=== PATIENT | female | born 1950 | race Caucasian/White ===

== ENCOUNTER 2017-07-11 18:10 | Emergency (ER) | payer MEDICARE, OTHER ==
[2017-07-11] MEDS ORDERED: HYDROmorphone 1 MG/ML Syringe IVPUSH ONE (18:34)
[2017-07-11 18:36] VITALS: BP 141/68
[2017-07-11] MEDS ORDERED: Take Home: Acetaminophen/HYDROcodone 325-10 MG, 5 Tab Pack PO ONE (19:34)
[2017-07-11] MEDS ORDERED: Take Home: Cyclobenzaprine 10 MG Tab, 4 Tab Pack PO ONE (19:44)
--- NOTE | 2017-07-11 20:25 | EDM.PDOC ---
ED HPI GENERAL MEDICAL PROBLEM - General Chief Complaint: Back Pain or Injury Time Seen by Provider: 07/11/17 18:10 Source of Information: Reports: Patient History Limitations: Reports: No Limitations - History of Present Illness INITIAL COMMENTS - FREE TEXT/NARRATIVE: Pt. states that she fell on her backside today when she slipped on the ice. She states that she did not strike her head. Denies any paresthesia in her extremities. Pt. complains of pain R lateral to her mid/lower lumbar region. Denies deformity /discomfort on palpation of her thoracic or cervical spine. 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 02/25/17 [ Rx] Gabapentin [Neurontin] 100 mg PO TID 03/13/17 [History] Past Medical History Other HEENT History: bacterial infection OU treated antibiotics Cardiovascular History: Reports: Hypertension, SOB on Exertion Other Respiratory History: hay fever, seasonal, stop bang 09/13 Other Musculoskeletal History: Riget foot and ankle pain. Neurological History: Reports: Neuropathy, Peripheral Psychiatric History: Reports: Depression Endocrine/Metabolic History: Reports: Hyperthyroidism, Obesity/BMI 30+ Hematologic History: Reports: None Immunologic History: Reports: None Oncologic (Cancer) History: Reports: None Other Dermatologic History: dermatitis/vaginal itch. - Infectious Disease History Infectious Disease History: Reports: None - Past Surgical History Musculoskeletal Surgical History: Reports: Knee Replacement Social & Family History - Family History Cardiac: Reports: Aneurysm, [place] Respiratory: Reports: Asthma Neurological: Reports: Dementia, Seizure Oncologic: Reports: Prostate - Tobacco Use Smoking Status *Q: Never Smoker Used Tobacco, but Quit: No Second Hand Smoke Exposure: No - Caffeine Use Caffeine Use: Reports: Coffee - Recreational Drug Use Recreational Drug Use: No Drug Use in Last 12 Months: No - Living Situation & Occupation Living situation: Reports: , with Family (grandson) Occupation: Retired ED ROS GENERAL - Review of Systems Review Of Systems: See Below Constitutional: Reports: No Symptoms HEENT: Reports: No Symptoms Cardiovascular: Reports: No Symptoms Endocrine: Reports: No Symptoms GI/Abdominal: Reports: No Symptoms : Reports: No Symptoms Musculoskeletal: Reports: Back Pain Skin: Reports: No Symptoms Neurological: Reports: No Symptoms Psychiatric: Reports: No Symptoms Hematologic/Lymphatic: Reports: No Symptoms Immunologic: Reports: No Symptoms ED EXAM, GENERAL - Physical Exam Exam: See Below General Appearance: Alert, WD/WN, No Apparent Distress Eye Exam: Bilateral Eye: EOMI, Foreign Body, PERRL Throat/Mouth: Normal Inspection, Normal Lips, Normal Teeth, Normal Gums, Normal Oropharynx, Normal Voice, No Airway Compromise Head: Atraumatic, Normocephalic Neck: Normal Inspection, Supple, Non-Tender, Full Range of Motion Respiratory/Chest: No Respiratory Distress, Lungs Clear, Normal Breath Sounds, No Accessory Muscle Use, Chest Non-Tender Cardiovascular: Normal Peripheral Pulses, Regular Rate, Rhythm, No Edema, No Gallop, No JVD, No Murmur, No Rub Peripheral Pulses: 4+: Radial (L), Radial (R) GI/Abdominal: Normal Bowel Sounds, Soft, Non-Tender, No Organomegaly, No Distention, No Abnormal Bruit, No Mass (Female) Exam: Deferred Rectal (Female) Exam: Deferred Back Exam: Decreased Range of Motion, Other (No vertebral tenderness to cervical , thoracic, or lumbar spine. Does have discomfort on palp.R lateral to the mid lumbar region) Extremities: Normal Inspection, Normal Range of Motion, Non-Tender, Normal Capillary Refill Neurological: Alert, Oriented, CN II-XII Intact, Normal Cognition, Normal Gait, Normal Reflexes, No Motor/Sensory Deficits Psychiatric: Normal Affect, Normal Mood Skin Exam: Warm, Dry, Intact, Normal Color, No Rash Course - Vital Signs Last Recorded V/S: Last Vital Signs Temp 37.0 C 07/11/17 18:10 Pulse 80 07/11/17 18:10 Resp 16 07/11/17 18:10 BP 141/68 H 07/11/17 18:10 Pulse Ox - Orders/Labs/Meds Orders: Active Orders 24 hr Category Date Time Status Lumbar Spine 2 or 3V [CR] Stat Exams 07/11/17 18:35 Taken Meds: Medications Discontinued Medications Generic Name Dose Route Start Last Admin Trade Name Lucy PRN Reason Stop Dose Admin Hydrocodone Bitart/Acetaminophen 1 packet 07/11/17 19:34 07/11/17 19:54 Take Home: Acetaminophen/Hydrocodone 325-10mg PO 07/11/17 19:35 1 packet ONETIME ONE Administration Cyclobenzaprine HCl 1 packet 07/11/17 19:44 07/11/17 19:54 Take Home: Cyclobenzaprine 10 Mg, 4 Tab Pack PO 07/11/17 19:45 1 packet TID ONE Administration Hydromorphone HCl 1 mg 07/11/17 18:34 07/11/17 18:50 Dilaudid IVPUSH 07/11/17 18:35 1 mg ONETIME ONE Administration - Radiology Interpretation Free Text/Narrative:: L spine radiographs reveal no acute pathology. Incidental finding of t12 congenital wedging vs. old compression fx. No acute findings noted. Departure - Departure Time of Disposition: 19:20 Disposition: Home, Self-Care 01 Condition: Good Clinical Impression: Lumbar spine strain - Discharge Information Instructions: Back Pain, Adult, [id number] Referrals: Winsome Catherine ORDER MAKE UP CLERK [Primary Care Provider] - Forms: ED Department Discharge Additional Instructions: [place] 10/325mg 1 tablet every 6 hours as needed for pain cyclobenzaprine 10mg 1 tablet 3 times daily as needed for muscle spasm Ice painful areas for 10-15 min every 1-2 hours Follow-up in clinic in 10-14 days - My Orders Last 24 Hours: My Active Orders 07/11/17 18:35 Lumbar Spine 2 or 3V [CR] Stat - Assessment/Plan Last 24 Hours: My Active Orders 07/11/17 18:35 Lumbar Spine 2 or 3V [CR] Stat
== END 2017-07-11 20:05 | disposition home or self-care (01) ==
LOC: VM.ED 18:10
DX: S39.012A Strain of muscle, fascia and tendon of lower back, initial encounter (principal); Z88.8 Allergy status to other drugs, medicaments and biological substances; Z91.09 Other allergy status, other than to drugs and biological substances; Z79.899 Other long term (current) drug therapy; E66.9 Obesity, unspecified; W00.0XXA Fall on same level due to ice and snow, initial encounter
CPT/HCPCS: 72100; 96374; 99284; A9270; J1170

== ENCOUNTER 2018-06-26 06:37 | Emergency (ER) | payer MEDICARE, OTHER ==
[2018-06-26 06:54] VITALS: BP 174/110
--- NOTE | 2018-06-26 07:28 | EDM.PDOC ---
ED HPI GENERAL MEDICAL PROBLEM - General Chief Complaint: Lower Extremity Injury/Pain Stated Complaint: FELL LAST SATURDAY, HIP AND LEG HAVE PAIN Time Seen by Provider: 06/26/18 06:40 Source of Information: Reports: Patient, RN, RN Notes Reviewed History Limitations: Reports: No Limitations - History of Present Illness Onset Date: 06/20/18 Left Hip Pain Score (Numeric/FACES): 10 - Related Data Allergies Allergy/AdvReac Type Severity Reaction Status Date / Time oxaprozin [From Daypro] Allergy Hives Verified 06/26/18 06:48 diagnostic xray materials Allergy Hives Uncoded 06/26/18 06:48 Home Meds: Home Meds Citalopram Hydrobromide [Celexa] 20 mg PO DAILY 02/25/17 [History] DULoxetine HCl [Duloxetine HCl] 30 mg PO DAILY 15 Days #15 capsule. 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 Neurological History: Reports: Neuropathy, Peripheral Psychiatric History: Reports: Anxiety Endocrine/Metabolic History: Reports: Hyperthyroidism, Obesity/BMI 30+ Hematologic History: Reports: None Immunologic History: Reports: None Oncologic (Cancer) History: Reports: None Other Dermatologic History: dermatitis/vaginal itch. - Infectious Disease History Infectious Disease History: Reports: None - Past Surgical History Neurological Surgical History: Reports: None Musculoskeletal Surgical History: Reports: Knee Replacement Other Musculoskeletal Surgeries/Procedures:: Bilateral knee Social & Family History - Family History Cardiac: Reports: Aneurysm, [place] Respiratory: Reports: Asthma Neurological: Reports: Dementia, Seizure Oncologic: Reports: Prostate - Tobacco Use Smoking Status *Q: Never Smoker - Caffeine Use Caffeine Use: Reports: Coffee - Living Situation & Occupation Living situation: Reports: , with Family (grandson) Occupation: Retired Review of Systems - Review of Systems Review Of Systems: See Below Constitutional: Denies: Chills, Fever Respiratory: Denies: Shortness of Breath, Cough Cardiovascular: Denies: Chest Pain, Palpitations Genitourinary: Denies: Hematuria Musculoskeletal: Reports: Joint Pain, Joint Swelling, Muscle Pain, Muscle Stiffness, Other (Left pelvic pain with radiation down lateral left leg) Skin: Reports: No Symptoms Neurological: Reports: No Symptoms ED EXAM, GENERAL - Physical Exam Exam: See Below Exam Limited By: No Limitations General Appearance: Alert, No Apparent Distress Respiratory/Chest: No Respiratory Distress, Lungs Clear, Normal Breath Sounds Cardiovascular: Normal Peripheral Pulses, Regular Rate, Rhythm Peripheral Pulses: 2+: Radial (L), Radial (R) Back Exam: Normal Inspection Extremities: Normal Inspection, Normal Range of Motion Neurological: Alert, Oriented Skin Exam: Warm, Dry, Intact, Normal Color Course - Vital Signs Last Recorded V/S: Last Vital Signs Temp 35.6 C 06/26/18 06:49 Pulse 78 06/26/18 06:49 Resp 20 06/26/18 06:49 BP 174/110 H 06/26/18 06:49 Pulse Ox 97 06/26/18 06:49 - Radiology Interpretation Free Text/Narrative:: CT Pelvis: No fracture or dislocation; Mild degenerative changes of the hips bilaterally Elbow, Left 3V: Dorsal soft tissue swelling. No fracture See reports in EMR for details CT Results Date: 06/26/18 CT Results Time: 08:35 Departure - Departure Time of Disposition: 08:39 Disposition: Home, Self-Care 01 Condition: Good Clinical Impression: Contusion, hip Qualifiers: Encounter type: initial encounter Laterality: left Qualified Code(s): S70.02XA - Contusion of left hip, initial encounter Elbow injury Qualifiers: Encounter type: initial encounter Laterality: left Qualified Code(s): S59.902A - Unspecified injury of left elbow, initial encounter Fall from slipping on ice Qualifiers: Encounter type: initial encounter Qualified Code(s): W00.9XXA - Unspecified fall due to ice and snow, initial encounter - Discharge Information *PRESCRIPTION DRUG MONITORING PROGRAM REVIEWED*: Not Applicable *COPY OF PRESCRIPTION DRUG MONITORING REPORT IN PATIENT VOLODYMYR: Not Applicable Instructions: Contusion, Hip Pain Forms: ED Department Discharge Additional Instructions: 1. Stay well hydrated and rest 2. Apply heat to painful areas 3. You do not have any fractures or dislocations 4. Use home medications 5. See your Primary as symptoms warrant - Problem List Review Problem List Initiated/Reviewed/Updated: Yes - Assessment/Plan Assessment:: Fall on ice Left hip contusion Left elbow contusion
--- NOTE | 2018-06-26 08:25 | CR ---
[id number] RAD/RAD Elbow Left 3V Min EXAM: LEFT ELBOW 3 VIEWS INDICATION: Fall with left elbow pain and swelling. COMPARISON: None. DISCUSSION: Soft tissue swelling along the dorsal aspect of the elbow. Mild osteoarthritis. No acute fracture, joint effusion, dislocation or other osseous abnormality is identified. IMPRESSION: 1. Dorsal soft tissue swelling. No fracture. Gonzales Law MD 06/26/18 0824 Thank you for allowing us to participate in the care of your patient.
--- NOTE | 2018-06-26 08:35 | CT ---
[id number] CT/CT Pelvis WO IV EXAM: CT OF THE PELVIS WITHOUT CONTRAST. INDICATION: FALL, BILATERAL PELVIS PAIN. COMPARISON: CT abdomen pelvis 02/14/2018. DISCUSSION: The visualized small bowel and colon does not demonstrate evidence of obstruction or inflammation. The urinary bladder and ureters are unremarkable. There are a few calcifications within the uterus suggesting fibroid. Atherosclerotic calcifications of the aorta and its branches. No acute fracture, dislocation or other suspicious osseous abnormality. Mild degenerative changes of the femoral acetabular joint bilaterally Multilevel degenerative changes of the visualized lumbar spine. IMPRESSION: 1. No fracture or dislocation. 2. Mild degenerative changes of the hips bilaterally. Doc Valentine DO 06/26/18 0835 Thank you for allowing us to participate in the care of your patient.
== END 2018-06-26 08:55 | disposition home or self-care (01) ==
LOC: VM.ED 06:37
DX: S70.02XA Contusion of left hip, initial encounter (principal); S59.902A Unspecified injury of left elbow, initial encounter; E05.90 Thyrotoxicosis, unspecified without thyrotoxic crisis or storm; I10 Essential (primary) hypertension; Z79.899 Other long term (current) drug therapy; Z88.8 Allergy status to other drugs, medicaments and biological substances; W00.9XXA Unspecified fall due to ice and snow, initial encounter
CPT/HCPCS: 72192; 73080-LT; 99283-25

== ENCOUNTER 2018-10-29 18:44 | Emergency (ER) | payer MEDICARE, OTHER ==
[2018-10-29 19:20] VITALS: BP 95/48; PULSE 92
[2018-10-29 19:53] LABS: CHLORIDE,CL 104 mmol/L (98-107); SODIUM,NA 142 mmol/L (136-145)
[2018-10-29 19:54] LABS: ANION GAP 15.8 mmol/L (10-20)
--- NOTE | 2018-10-30 06:44 | EDM.PDOC ---
ED HPI GENERAL MEDICAL PROBLEM - General Chief Complaint: Upper Extremity Injury/Pain Time Seen by Provider: 10/29/18 19:10 Source of Information: Reports: Patient History Limitations: Reports: No Limitations - History of Present Illness INITIAL COMMENTS - FREE TEXT/NARRATIVE: Pt. presents to ER with complaints of pain to left upper arm for the past several days. Pt. states that she has been much more active and has been doing a lot of activity over her head. Denies any specific injury to the area. Pt. has a history of arthritis and chronic pain. She is attempting to wean herself off of her [place] and has been taking high doses of ibuprofen for the discomfort. Pt. states that the pain is worse with movement and palpation of the shoulder. She has had pain in the area in the past, but states that it is worse than normal. Denies any numbness/tingling in the extremity. No chest pain. No shortness of breath. Denies any falls or subluxation of the shoulder joint. Onset Date: 10/29/18 Location: Reports: Upper Extremity, Left Severity: Moderate Left Upper Arm Pain Score (Numeric/FACES): 9 - Related Data Allergies Allergy/AdvReac Type Severity Reaction Status Date / Time oxaprozin [From Daypro] Allergy Hives Verified 10/29/18 19:07 diagnostic xray materials Allergy Hives Uncoded 10/29/18 19:07 Home Meds: Home Meds Citalopram Hydrobromide [Celexa] 40 mg PO DAILY 02/25/17 [History] DULoxetine HCl [Duloxetine HCl] 30 mg PO DAILY 15 Days #15 capsule. 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 Neurological History: Reports: Neuropathy, Peripheral Psychiatric History: Reports: Anxiety Endocrine/Metabolic History: Reports: Hyperthyroidism, Obesity/BMI 30+ Hematologic History: Reports: None Immunologic History: Reports: None Oncologic (Cancer) History: Reports: None Other Dermatologic History: dermatitis/vaginal itch. - Infectious Disease History Infectious Disease History: Reports: None - Past Surgical History Neurological Surgical History: Reports: None Musculoskeletal Surgical History: Reports: Knee Replacement Other Musculoskeletal Surgeries/Procedures:: Bilateral knee Social & Family History - Family History Cardiac: Reports: Aneurysm, [place] Respiratory: Reports: Asthma Neurological: Reports: Dementia, Seizure Oncologic: Reports: Prostate - Tobacco Use Smoking Status *Q: Unknown Ever Smoked - Caffeine Use Caffeine Use: Reports: Coffee - Living Situation & Occupation Living situation: Reports: , with Family (grandson) Occupation: Retired Review of Systems - Review of Systems Review Of Systems: See Below Constitutional: Reports: No Symptoms Eyes: Reports: No Symptoms Ears: Reports: No Symptoms Nose: Reports: No Symptoms Mouth/Throat: Reports: No Symptoms Respiratory: Reports: No Symptoms Cardiovascular: Reports: No Symptoms GI/Abdominal: Reports: No Symptoms Genitourinary: Reports: No Symptoms Musculoskeletal: Reports: Shoulder Pain, Arm Pain Skin: Reports: No Symptoms Neurological: Reports: No Symptoms Psychiatric: Reports: No Symptoms ED EXAM, GENERAL - Physical Exam Exam: See Below Exam Limited By: No Limitations General Appearance: Alert, WD/WN, No Apparent Distress Head: Atraumatic, Normocephalic Neck: Normal Inspection, Supple, Non-Tender, Full Range of Motion Respiratory/Chest: No Respiratory Distress, Lungs Clear, Normal Breath Sounds, No Accessory Muscle Use, Chest Non-Tender Cardiovascular: Normal Peripheral Pulses, Regular Rate, Rhythm, No Edema, No Gallop, No JVD, No Murmur, No Rub Back Exam: Normal Inspection, Full Range of Motion Extremities: Normal Inspection, Limited Range of Motion (posteriolateral L shoulder/upper arm pain. + straight arm raise. Empty can test positive.) Neurological: Alert, Oriented, CN II-XII Intact, Normal Cognition, Normal Gait, Normal Reflexes, No Motor/Sensory Deficits Psychiatric: Normal Affect, Normal Mood Skin Exam: Warm, Dry, Intact, Normal Color, No Rash Course - Vital Signs Last Recorded V/S: Last Vital Signs Temp 36.6 C 10/29/18 18:45 Pulse 92 10/29/18 18:45 Resp 18 10/29/18 18:45 BP 95/48 L 10/29/18 18:45 Pulse Ox 91 L 10/29/18 18:45 - Orders/Labs/Meds Orders: Active Orders 24 hr Category Date Time Status EKG Documentation Completion [RC] STAT Care 10/29/18 19:13 Active Labs: Laboratory Tests 10/29/18 10/29/18 Range/Units 19:22 19:22 WBC 7.5 (4.0-10.0) x10^3/uL RBC 4.33 (4.00-5.50) x10^6/uL Hgb 11.7 L (12.0-16.0) g/dL Hct 36.0 (33.0-47.0) % MCV 83.1 (78.0-93.0) fL MCH 27.0 (26.0-32.0) pg MCHC 32.5 (32.0-36.0) g/dL RDW Coeff of Carin 16.7 H (10.0-15.0) % Plt Count 285 (130-400) x10^3/uL Neut % (Auto) 64.2 (50.0-80.0) % Lymph % (Auto) 24.4 L (25.0-50.0) % [place] % (Auto) 7.5 (2.0-11.0) % Eos % (Auto) 3.5 (0.0-4.0) % Baso % (Auto) 0.4 (0.2-1.2) % Sodium 142 (136-145) mmol/L Potassium 4.8 (3.5-5.1) mmol/L Chloride 104 (98-107) mmol/L Carbon Dioxide 27 (21-32) mmol/L Anion Gap 15.8 (10-20) mmol/L BUN 33 H (7-18) mg/dL Creatinine 1.9 H (0.55-1.02) mg/dL Est Cr Clr Drug Dosing 25.79 mL/min Estimated GFR (MDRD) 26 Glucose 114 H (74-106) mg/dL Calcium 9.2 (8.5-10.1) mg/dL Corrected Calcium 9.28 (8.5-10.1) mg/dL Phosphorus 6.2 H (2.6-4.7) mg/dL Magnesium 2.0 (1.8-2.4) mg/dL Total Bilirubin 0.8 (0.2-1.0) mg/dL AST 15 (15-37) U/L ALT 22 (14-59) U/L Alkaline Phosphatase 122 H (46-116) U/L Troponin I < 0.017 (<=0.056) ng/mL Total Protein 7.3 (6.4-8.2) g/dL Albumin 3.9 (3.4-5.0) g/dL Globulin 3.4 Albumin/Globulin Ratio 1.15 Departure - Departure Time of Disposition: 20:28 Disposition: Home, Self-Care 01 Clinical Impression: Rotator cuff arthropathy of left shoulder, Nephropathy due to nonsteroidal anti -inflammatory drug (NSAID) - Discharge Information Instructions: Shoulder Sprain, Chronic Kidney Disease, Adult, [id number] Referrals: Winsome Catherine NP [Primary Care Provider] - Forms: ED Department Discharge Additional Instructions: Your creatinine is quite high. Stop taking any antiinflammatory drugs (ibuprofen , naproxen, etc.) You will need to have your kidney function checked within the next 10 days. Make sure you are getting plenty of water. Dehydration could be contributing to muscle pains and worsening kidney function, but the pain is most likely due to rotator cuff strain from your activity yesterday. - My Orders Last 24 Hours: My Active Orders 10/29/18 19:13 EKG Documentation Completion [RC] STAT - Assessment/Plan Last 24 Hours: My Active Orders 10/29/18 19:13 EKG Documentation Completion [RC] STAT Plan: Discussed exercises to do for shoulder. No overhead activity. Advised to stop all NSAID medications. She has been taking upward of 600mg ibuprofen several times per day because she is trying to wean herself from [place]. Advised taking a half pill of norco every 4-6 hours. Will continue the lisinopril for now. Her creat was in the 1.05 range before she started with high dose NSAIDS. Follow-up in clinic in 7-10 days for repeat labs.
== END 2018-10-29 20:28 | disposition home or self-care (01) ==
LOC: VM.ED 18:44
DX: N14.0 Analgesic nephropathy (principal); M75.102 Unspecified rotator cuff tear or rupture of left shoulder, not specified as traumatic; I10 Essential (primary) hypertension; F41.9 Anxiety disorder, unspecified; E05.90 Thyrotoxicosis, unspecified without thyrotoxic crisis or storm; Z79.1 Long term (current) use of non-steroidal anti-inflammatories (NSAID); Z91.041 Radiographic dye allergy status; Z88.6 Allergy status to analgesic agent; Z79.899 Other long term (current) drug therapy
CPT/HCPCS: 36415; 80053; 83735; 84100; 84484; 85025; 93005; 99283-25; 99284-GF

== ENCOUNTER → 2018-12-03 | Outpatient (CLI) | payer MEDICARE, OTHER | LOC: VM.SLEEP 07:56 | PROVIDERS: ATTEND Nurse Practitioner | DX: G47.33 Obstructive sleep apnea (adult) (pediatric) (principal); E66.9 Obesity, unspecified; Z68.42 Body mass index [BMI] 45.0-49.9, adult | CPT/HCPCS: Q3014 ==

== ENCOUNTER 2019-06-09 11:24 | Observation (INO) | payer MEDICARE, OTHER ==
--- NOTE | 2019-06-09 11:35 | EDM.PDOC ---
ED HPI GENERAL MEDICAL PROBLEM - General Chief Complaint: Syncope Stated Complaint: Syncopal episode Time Seen by Provider: 06/09/19 11:24 Source of Information: Reports: Patient, EMS, EMS Notes Reviewed History Limitations: Reports: No Limitations - History of Present Illness INITIAL COMMENTS - FREE TEXT/NARRATIVE: Patient comes into the emergency department via EMS for complaint of syncopal episode. Patient was at a local [employer] function states that she felt extremely dizzy and hot and ended up passing out in a chair. Friends lowered her to the floor. They state the unresponsive episode lasted approximately 2 minutes when the patient awoke she was still dizzy, pale, and was vomiting. Patient states that she been feeling extremely dizzy the past 2 to 3 weeks especially with moving her head and raising from a laying position. Patient states that she did not eat breakfast this morning and took all of her pills at once with 1 large cup of water. She is also noticed that she does have some mild distention in her abdomen and increased belching. 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 She states that she does not eat large quantities at a time however she did not have her normal intake today. Patient denies any abnormal bowel movements. She also denies any fevers or recent illnesses. Patient did donate blood yesterday and her hemoglobin at that time frame was 12. EMS started an IV and completed a 12-lead prior to patient's arrival. Patient remained in a sinus rhythm. EMS state that the patient was extremely pale upon arrival and was sitting upright vomiting talking to people around her. By the time she presented to the emergency department EMS state that her color was much improved. Patient continues deny any pain or injury and she also denies any dizziness right now. Patient states that she has lost all of her weight and she decided to stop taking all of her medications at once approximately 3 weeks ago. She has noticed last 2 to 3 days that she has been extremely irritable with her grandson who she lives with her. She decided today to restart all of her medications at one time at the increased dosing that she had been on before. She denies consulting with her provider to stop the medications or to restart the medications. Patient also denies eating any breakfast prior to taking the medication. Onset: Sudden Location: Reports: Abdomen, Generalized Severity: Mild Improves with: Reports: None Worsens with: Reports: None Context: Reports: Activity Associated Symptoms: Reports: Nausea/Vomiting - Related Data Allergies Allergy/AdvReac Type Severity Reaction Status Date / Time oxaprozin [From Daypro] Allergy Hives Verified 06/09/19 11:48 diagnostic xray materials Allergy Hives Uncoded 10/29/18 19:07 Home Meds: Home Meds Citalopram Hydrobromide [Celexa] 40 mg PO DAILY 02/25/17 [History] Gabapentin [Neurontin] 300 mg PO TID 03/13/17 [History] Ibuprofen [Advil] 200 mg PO Q6H PRN 08/19/17 [History] Levothyroxine 1 tab PO DAILY 08/19/17 [History] Lisinopril 1 tab PO DAILY 10/29/18 [History] Meclizine [Antivert] 25 mg PO TID PRN 06/09/19 [History] Omeprazole Magnesium [Prilosec Otc] 20 mg PO BID 06/09/19 [History] buPROPion [Wellbutrin] 100 mg PO BID 06/09/19 [History] Past Medical History Other HEENT History: bacterial infection OU treated antibiotics Cardiovascular History: Reports: Hypertension, SOB on Exertion Respiratory History: Reports: SOB Other Respiratory History: hay fever, seasonal [employer] History: Reports: Musculoskeletal History: Reports: Arthritis, Osteoarthritis Other Musculoskeletal History: Right foot and ankle pain. Neurological History: Reports: Neuropathy, Peripheral Psychiatric History: Reports: Anxiety Endocrine/Metabolic History: Reports: Hyperthyroidism, Obesity/BMI 30+ Hematologic History: Reports: None Immunologic History: Reports: None Oncologic (Cancer) History: Reports: None Other Dermatologic History: dermatitis/vaginal itch. - Infectious Disease History Infectious Disease History: Reports: None - Past Surgical History Neurological Surgical History: Reports: None Musculoskeletal Surgical History: Reports: Knee Replacement Other Musculoskeletal Surgeries/Procedures:: Bilateral knee Social & Family History - Family History Cardiac: Reports: Aneurysm, [place] Respiratory: Reports: Asthma Neurological: Reports: Dementia, Seizure Oncologic: Reports: Prostate - Caffeine Use Caffeine Use: Reports: Coffee - Living Situation & Occupation Living situation: Reports: , with Family (grandson) Occupation: Retired ED ROS GENERAL - Review of Systems Review Of Systems: Comprehensive ROS is negative, except as noted in HPI. Constitutional: Reports: No Symptoms HEENT: Reports: No Symptoms Respiratory: Reports: No Symptoms Cardiovascular: Reports: No Symptoms Musculoskeletal: Reports: No Symptoms Skin: Reports: No Symptoms Neurological: Reports: Dizziness (with turning head to the right and raising from the laying position x 2 weeks ) Psychiatric: Reports: No Symptoms Hematologic/Lymphatic: Reports: No Symptoms Immunologic: Reports: No Symptoms ED EXAM, GENERAL - Physical Exam Exam: See Below Exam Limited By: No Limitations General Appearance: Alert, WD/WN, No Apparent Distress Eye Exam: Bilateral Eye: EOMI, PERRL Ears: Normal External Exam, Normal Canal, Hearing Grossly Normal, Normal TMs Head: Atraumatic, Normocephalic Neck: Normal Inspection, Supple, Non-Tender Respiratory/Chest: No Respiratory Distress, Lungs Clear, Normal Breath Sounds, No Accessory Muscle Use, Chest Non-Tender Cardiovascular: Normal Peripheral Pulses, Regular Rate, Rhythm, No Edema GI/Abdominal: Soft, Non-Tender, Other (large amount of belching ). No: Tender Back Exam: Normal Inspection, Full Range of Motion Extremities: Normal Inspection, Normal Range of Motion Neurological: Alert, Oriented Psychiatric: Normal Affect, Normal Mood Skin Exam: Warm, Dry, Intact, Pallor Course - Vital Signs Last Recorded V/S: Last Vital Signs Temp 36.8 C 06/09/19 11:24 Pulse 71 06/09/19 11:24 Resp 18 06/09/19 11:24 BP 91/54 L 06/09/19 12:17 Pulse Ox 98 06/09/19 11:24 - Orders/Labs/Meds Orders: Active Orders 24 hr Category Date Time Status Admission Status [Patient Status] [ADT] Routine ADT 06/09/19 13:06 Ordered Blood Glucose Check, Bedside [RC] ONETIME Care 06/09/19 11:30 Active Labs: Laboratory Tests 06/09/19 06/09/19 06/09/19 Range/Units 11:29 11:43 11:43 WBC 5.1 (4.0-10.0) x10^3/uL RBC 3.85 L (4.00-5.50) x10^6/uL Hgb 11.0 L (12.0-16.0) g/dL Hct 33.2 (33.0-47.0) % MCV 86.2 D (78.0-93.0) fL MCH 28.6 (26.0-32.0) pg MCHC 33.1 (32.0-36.0) g/dL RDW Coeff of Carin 14.6 (10.0-15.0) % Plt Count 198 D (130-400) x10^3/uL Neut % (Auto) 57.6 (50.0-80.0) % Lymph % (Auto) 31.6 (25.0-50.0) % [place] % (Auto) 6.9 (2.0-11.0) % Eos % (Auto) 3.1 (0.0-4.0) % Baso % (Auto) 0.8 (0.2-1.2) % PT 9.9 L (10.0-12.8) SEC INR 0.9 L (2.0-3.5) Sodium (136-145) mmol/L Potassium (3.5-5.1) mmol/L Chloride (98-107) mmol/L Carbon Dioxide (21-32) mmol/L Anion Gap (10-20) mmol/L BUN (7-18) mg/dL Creatinine (0.55-1.02) mg/dL Est Cr Clr Drug Dosing Estimated GFR (MDRD) Glucose (74-106) mg/dL POC Glucose 113 H (74-106) mg/dL Calcium (8.5-10.1) mg/dL Corrected Calcium (8.5-10.1) mg/dL Total Bilirubin (0.2-1.0) mg/dL AST (15-37) U/L ALT (14-59) U/L Alkaline Phosphatase (46-116) U/L Creatine Kinase (26-192) U/L Troponin I (<=0.056) ng/mL C-Reactive Protein (<=0.9) mg/dL Total Protein (6.4-8.2) g/dL Albumin (3.4-5.0) g/dL Globulin Albumin/Globulin Ratio 06/09/19 06/09/19 Range/Units 11:43 11:43 WBC (4.0-10.0) x10^3/uL RBC (4.00-5.50) x10^6/uL Hgb (12.0-16.0) g/dL Hct (33.0-47.0) % MCV (78.0-93.0) fL MCH (26.0-32.0) pg MCHC (32.0-36.0) g/dL RDW Coeff of Carin (10.0-15.0) % Plt Count (130-400) x10^3/uL Neut % (Auto) (50.0-80.0) % Lymph % (Auto) (25.0-50.0) % [place] % (Auto) (2.0-11.0) % Eos % (Auto) (0.0-4.0) % Baso % (Auto) (0.2-1.2) % PT (10.0-12.8) SEC INR (2.0-3.5) Sodium 144 (136-145) mmol/L Potassium 4.1 (3.5-5.1) mmol/L Chloride 108 H (98-107) mmol/L Carbon Dioxide 26 (21-32) mmol/L Anion Gap 14.1 (10-20) mmol/L BUN 15 (7-18) mg/dL Creatinine 1.1 H (0.55-1.02) mg/dL Est Cr Clr Drug Dosing TNP Estimated GFR (MDRD) 49 Glucose 113 H (74-106) mg/dL POC Glucose (74-106) mg/dL Calcium 8.8 (8.5-10.1) mg/dL Corrected Calcium 9.44 (8.5-10.1) mg/dL Total Bilirubin 1.0 (0.2-1.0) mg/dL AST 10 L (15-37) U/L ALT 15 (14-59) U/L Alkaline Phosphatase 78 (46-116) U/L Creatine Kinase 35 (26-192) U/L Troponin I 0.028 (<=0.056) ng/mL C-Reactive Protein < 0.2 (<=0.9) mg/dL Total Protein 5.9 L (6.4-8.2) g/dL Albumin 3.2 L (3.4-5.0) g/dL Globulin 2.7 Albumin/Globulin Ratio 1.19 Meds: Medications Discontinued Medications Generic Name Dose Route Start Last Admin Trade Name Freq PRN Reason Stop Dose Admin Sodium Chloride 500 mls @ 500 mls/hr 06/09/19 11:42 06/09/19 11:49 Normal Saline IV 06/09/19 12:41 500 mls/hr ONETIME ONE Administration Departure - Departure Time of Disposition: 13:10 Disposition: Refer to Observation Condition: Good Clinical Impression: Vertigo Syncope Qualifiers: Syncope type: unspecified Qualified Code(s): R55 - Syncope and collapse - Discharge Information *PRESCRIPTION DRUG MONITORING PROGRAM REVIEWED*: Not Applicable *COPY OF PRESCRIPTION DRUG MONITORING REPORT IN PATIENT VOLODYMYR: Not Applicable Sepsis Event Note - Focused Exam Vital Signs: Vital Signs Temp Pulse Resp BP Pulse Ox 06/09/19 12:17 91/54 L 06/09/19 11:24 36.8 C 71 18 97/53 L 98 Date Exam was Performed: 06/09/19 Time Exam was Performed: 13:07 - Problem List Review Problem List Initiated/Reviewed/Updated: Yes - My Orders Last 24 Hours: My Active Orders 06/09/19 11:30 Blood Glucose Check, Bedside [RC] ONETIME 06/09/19 13:06 Admission Status [Patient Status] [ADT] Routine - Assessment/Plan Admission H&P: Please use this note as an admission H&P Last 24 Hours: My Active Orders 06/09/19 11:30 Blood Glucose Check, Bedside [RC] ONETIME 06/09/19 13:06 Admission Status [Patient Status] [ADT] Routine Assessment:: 1. Syncopal episode 2. Nausea 3. Vertigo 4. increase belching Plan: 1. Labs completed in the ER. Results reviewed with the patient 2. CT completed in ER. Results reviewed with the patient 3. IV fluids provided-500ml Bolus 4. Pain medication given for severe pain and discomfort- 5. Zofran given in the ER to help with nausea- was given via EMS 6. EKG completed via EMS- sinus rhythm 7. Tylenol 650mg tab given for headache 8. Patient will be admitted observation status. Did contact [facility] who is unable to admit. Patient will be admitted under the ER staff for observation Code level 1 for syncopal episode. Activity as tolerated. PT referral and assessment/treatment of vertigo. 9. Patient and nursing staff was updated regarding the plan of care 10. Patient and family are agreeable to the above plan of care 11. All questions and concerns were addressed with the patient and family prior to being admitted. 1. Syncopal episode - Nursing to monitor - vital signs completed routinely - labs ordered in AM - Normal saline 125ml/hr - Encourage patient to eat health appropriate food that is consistent with her food restriction related to gastric bypass - Up with assistance - Physical therapy referral to assess home safety and ambulation - Cardiac monitoring and pulse oximetry - EKG in Am 2. Nausea - Zofran ordered for nausea - Normal saline 125ml/hr 3. Vertigo - Meclizine PRN for dizziness - ambulation and getting up with assistance 4. Accidental medication overdose - Restart at home medications in the am. Wellbutrin will be restarted at 75mg daily, Celexa 40mg daily. - Will hold off on other at home medications for she is unsure if she really needs them since the weight loss. Pt will follow up with PCP within a few days of discharge to discuss.
[2019-06-09] MEDS ORDERED: Sodium Chloride 0.9% 500 ML IV ONE (11:42)
[2019-06-09 12:09] LABS: CHLORIDE,CL 108 mmol/L (98-107); SODIUM,NA 144 mmol/L (136-145)
[2019-06-09 12:10] LABS: ANION GAP 14.1 mmol/L (10-20)
--- NOTE | 2019-06-09 12:52 | CT ---
[id number] CT/CT Abdomen Pelvis WO IV EXAM: CT Abdomen Pelvis WO IV CLINICAL DATA: ABDOMINAL PAIN, BELCHING, GASTRIC BYPASS. COMPARISON STUDY: None. FINDINGS: Lung bases are clear. Gallbladder is mildly distended but otherwise unremarkable. Liver, spleen, pancreas, adrenal glands, and kidneys are unremarkable. No urinary tract obstruction. Postsurgical change from gastric bypass. Small sliding-type hiatus hernia. No evidence of a small bowel obstruction. No enteritis. No colitis or diverticulitis. Calcified fibroid in the posterior uterine body. Uterus and adnexal regions are otherwise unremarkable. Urinary bladder is normal. Spondylosis diffusely throughout throughout the spine. No fracture or osseous lesion. IMPRESSION: No evidence of bowel obstruction or other acute findings in the abdomen/pelvis. Chronic findings are described above. Hayden Núñez MD 06/09/19 [id number] Thank you for allowing us to participate in the care of your patient.
[2019-06-09] MEDS ORDERED: Acetaminophen 325 MG Tab PO ONE (13:08)
[2019-06-09] MEDS ORDERED: Ondansetron 4 MG Tab.DIS PO PRN (13:43)
[2019-06-09] MEDS ORDERED: Ketorolac 15 MG/ML SDV IVPUSH PRN (13:43)
[2019-06-09] MEDS ORDERED: Sodium Chloride 0.9% 1,000 ML IV SCH (14:00)
[2019-06-09] MEDS: Sodium Chloride 0.9% 1,000 ML IV SCH ×2 (19:17→23:44)
[2019-06-10 06:57] LABS: CHLORIDE,CL 111 mmol/L (98-107); SODIUM,NA 144 mmol/L (136-145)
[2019-06-10 06:58] LABS: ANION GAP 9.2 mmol/L (10-20)
[2019-06-10] MEDS ORDERED: Citalopram 20 MG Tab PO SCH (08:00)
[2019-06-10] MEDS ORDERED: Acetaminophen 325 MG Tab PO PRN (09:21)
[2019-06-10 11:05] VITALS: BP 115/64; PULSE 70
--- NOTE | 2019-06-11 09:14 | PCM.DCSUM1 ---
Discharge Summary - Hospital Course Free Text/Narrative:: Pt. is feeling better. She has been hydrated with NS at 125ml/hr since admission. She consumed a breakfast and lunch today and states that she is feeling stronger. Nursing states that the patient has been ambulating on the floor without difficulty. Denies any chest pain or shortness of breath. No lightheadedness or palpitations. Denies any fever or chills. Diagnosis: Stroke: No - Discharge Data Discharge Date: 06/10/19 Discharge Disposition: Home, Self-Care 01 Condition: Good - Referral to Home Health Primary Care Physician: Winsome Catherine NP - Discharge Diagnosis/Problem(s) (1) Syncope SNOMED Code(s): 635810946 ICD Code: R55 - SYNCOPE AND COLLAPSE Status: Acute Qualifiers: Syncope type: unspecified Qualified Code(s): R55 - Syncope and collapse (2) Vertigo SNOMED Code(s): 717340266 ICD Code: R42 - DIZZINESS AND GIDDINESS Status: Acute - Patient Summary/Data Consults: Consultations 06/09/19 13:43 PT Evaluation and Treatment [CONS] Routine - Patient Instructions Driving: Do Not Drive - Discharge Plan *PRESCRIPTION DRUG MONITORING PROGRAM REVIEWED*: Not Applicable *COPY OF PRESCRIPTION DRUG MONITORING REPORT IN PATIENT VOLODYMYR: Not Applicable Home Medications: Home Meds Citalopram Hydrobromide [Celexa] 40 mg PO DAILY 02/25/17 [History] Gabapentin [Neurontin] 300 mg PO TID 03/13/17 [History] Ibuprofen [Advil] 200 mg PO Q6H PRN 08/19/17 [History] Levothyroxine 1 tab PO DAILY 08/19/17 [History] Lisinopril 1 tab PO DAILY 10/29/18 [History] Meclizine [Antivert] 25 mg PO TID PRN 06/09/19 [History] Omeprazole Magnesium [Prilosec Otc] 20 mg PO BID 06/09/19 [History] buPROPion [Wellbutrin] 100 mg PO BID 06/09/19 [History] Referrals: Winsome Catherine NP [Primary Care Provider] - - Discharge Summary/Plan Comment DC Time >30 min.: Yes - General Info Date of Service: 06/11/19 Functional Status: Reports: Pain Controlled, Tolerating Diet, Ambulating, Urinating - Review of Systems General: Reports: No Symptoms HEENT: Reports: No Symptoms Pulmonary: Reports: No Symptoms Cardiovascular: Reports: No Symptoms Gastrointestinal: Reports: No Symptoms Genitourinary: Reports: No Symptoms Musculoskeletal: Reports: No Symptoms Skin: Reports: No Symptoms Neurological: Reports: No Symptoms Psychiatric: Reports: No Symptoms - Patient Data Vitals - Most Recent: Last Vital Signs Temp 36.7 C 06/10/19 10:00 Pulse 70 06/10/19 10:00 Resp 16 06/10/19 10:00 BP 115/64 06/10/19 10:00 Pulse Ox 98 06/10/19 10:00 Weight - Most Recent: 90.718 kg Med Orders - Current: Current Medications Discontinued Medications Acetaminophen (Tylenol) 650 mg PO NOW ONE Stop: 06/09/19 13:09 Last Admin: 06/09/19 13:14 Dose: 650 mg Acetaminophen (Tylenol) 650 mg PO Q4H PRN PRN Reason: Pain Last Admin: 06/10/19 09:57 Dose: 650 mg Bupropion HCl (Wellbutrin) 75 mg PO DAILY [facility] Last Admin: 06/10/19 07:47 Dose: 75 mg Citalopram Hydrobromide (Celexa) 20 mg PO DAILY [facility] Last Admin: 06/10/19 07:48 Dose: 20 mg Sodium Chloride (Normal Saline) 500 mls @ 500 mls/hr IV ONETIME ONE Stop: 06/09/19 12:41 Last Admin: 06/09/19 11:49 Dose: 500 mls/hr Sodium Chloride (Normal Saline) 1,000 mls @ 125 mls/hr IV ASDIRECTED [facility] Sodium Chloride (Normal Saline) 1,000 mls @ 125 mls/hr IV ASDIRECTED [facility] Last Admin: 06/09/19 23:44 Dose: 125 mls/hr Ketorolac Tromethamine (Toradol) 15 mg IVPUSH Q6H PRN PRN Reason: Pain (moderate 4-6) Ondansetron HCl (Zofran Odt) 4 mg PO Q6H PRN PRN Reason: nausea, able to take PO - Exam General: Reports: Alert, Oriented HEENT: Reports: Pupils Equal, Pupils Reactive, EOMI, Mucous Membr. Moist/[place] Neck: Reports: Supple, Thyromegaly Lungs: Reports: Clear to Auscultation, Normal Respiratory Effort Cardiovascular: Reports: Regular Rate, Regular Rhythm GI/Abdominal Exam: Normal Bowel Sounds, Soft, Non-Tender, No Mass (Female) Exam: Deferred Rectal (Female) Exam: Deferred Back Exam: Reports: Normal Inspection, Full Range of Motion Extremities: Normal Inspection, Normal Range of Motion, Non-Tender, No Pedal Edema, Normal Capillary Refill Skin: Reports: Warm, Dry, Intact Wound/Incisions: Reports: Healing Well Neurological: Reports: No New Focal Deficit Psy/Mental Status: Reports: Alert, Normal Affect, Normal Mood
== END 2019-06-10 13:15 | disposition home or self-care (01) ==
LOC: VM.ED 11:24 → VM.MS 13:06
PROVIDERS: ADMIT Nurse Practitioner; ATTEND Nurse Practitioner
DX: R55 Syncope and collapse (principal); R42 Dizziness and giddiness; R11.0 Nausea; R14.2 Eructation; T43.291A Poisoning by other antidepressants, accidental (unintentional), initial encounter; T43.221A Poisoning by selective serotonin reuptake inhibitors, accidental (unintentional), initial encounter; I10 Essential (primary) hypertension; F41.9 Anxiety disorder, unspecified; E66.9 Obesity, unspecified; Z68.32 Body mass index [BMI] 32.0-32.9, adult; Z91.041 Radiographic dye allergy status; Z88.6 Allergy status to analgesic agent
CPT/HCPCS: 36415; 74176; 80048; 80053; 82550; 82962; 84484; 85025; 85610; 86140; 96360; 96361; 99217; 99220; 99285-25; A9270-GY; G0378; J7030; J7040

== ENCOUNTER 2020-10-04 22:16 | Emergency (ER) | payer MEDICARE, OTHER ==
[2020-10-04 22:30] VITALS: BP 135/79; PULSE 67
[2020-10-04] MEDS ORDERED: Ketorolac 30 MG/ML SDV IM ONE (22:33)
[2020-10-04] MEDS ORDERED: Diazepam 5 MG Tab PO ONE (22:33)
--- NOTE | 2020-10-04 22:40 | EDM.PDOC ---
ED HPI GENERAL MEDICAL PROBLEM - General Chief Complaint: Back Pain or Injury Time Seen by Provider: 10/04/20 22:27 Source of Information: Reports: Patient - History of Present Illness INITIAL COMMENTS - FREE TEXT/NARRATIVE: Lesly is a 70 y/o female who [facility] with lower back pain. She reports the last 2 days has done some heavy house cleaning, but her back really did not bother her. 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 She did take ibuprofen this AM with not much help. She diann seen Elisa Dash CRNA in the past for injections into her back, but she has not had to do that for the last 6 months or so because it had not really bothered her much. Lower Back Pain Score (Numeric/FACES): 10 - Related Data Allergies Allergy/AdvReac Type Severity Reaction Status Date / Time oxaprozin [From Daypro] Allergy Hives Verified 10/04/20 22:22 diagnostic xray materials Allergy Hives Uncoded 08/04/20 08:30 Home Meds: Home Meds Citalopram Hydrobromide [Celexa] 20 mg PO DAILY 02/25/17 [History] Levothyroxine 1 tab PO DAILY 08/19/17 [History] Ibuprofen 600 mg PO Q6H PRN 07/11/20 [History] Past Medical History Other HEENT History: bacterial infection OU treated antibiotics Cardiovascular History: Reports: Hypertension, SOB on Exertion Respiratory History: Reports: SOB Other Respiratory History: hay fever, seasonal 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 Neurological History: Reports: Neuropathy, Peripheral Psychiatric History: Reports: Anxiety, Depression Endocrine/Metabolic History: Reports: Hyperthyroidism, Obesity/BMI 30+ Hematologic History: Reports: None Immunologic History: Reports: None Oncologic (Cancer) History: Reports: None Other Dermatologic History: dermatitis/vaginal itch. - Infectious Disease History Infectious Disease History: Reports: None - Past Surgical History GI Surgical History: Reports: Bariatric Procedure, Other (See Below) Other GI Surgeries/Procedures: gastric bypass Neurological Surgical History: Reports: None Musculoskeletal Surgical History: Reports: Knee Replacement Other Musculoskeletal Surgeries/Procedures:: Bilateral knee Social & Family History - Family History Cardiac: Reports: Aneurysm, [place] Respiratory: Reports: Asthma Neurological: Reports: Dementia, Seizure Oncologic: Reports: Prostate - Tobacco Use Tobacco Use Status *Q: Never Tobacco User - Caffeine Use Caffeine Use: Reports: None - Living Situation & Occupation Living situation: Reports: , with Family (grandson) Occupation: Retired Review of Systems - Review of Systems Review Of Systems: See Below Constitutional: Reports: No Symptoms Eyes: Reports: No Symptoms Ears: Reports: No Symptoms Nose: Reports: No Symptoms Mouth/Throat: Reports: No Symptoms Respiratory: Reports: No Symptoms Cardiovascular: Reports: No Symptoms GI/Abdominal: Reports: No Symptoms Genitourinary: Reports: No Symptoms Musculoskeletal: Reports: Back Pain Neurological: Reports: No Symptoms. Denies: Numbness, Tingling Psychiatric: Reports: No Symptoms ED EXAM, GENERAL - Physical Exam Exam: See Below General Appearance: Alert, WD/WN, No Apparent Distress (Elderly female sitting in a wheelchair.) Ears: Hearing Grossly Normal Nose: Normal Inspection Throat/Mouth: Normal Inspection, Normal Lips, Normal Voice Head: Atraumatic, Normocephalic Respiratory/Chest: No Respiratory Distress, Lungs Clear Cardiovascular: Regular Rate, Rhythm, No Murmur GI/Abdominal: Normal Bowel Sounds, Soft, Non-Tender (Female) Exam: Deferred Rectal (Female) Exam: Deferred Back Exam: Muscle Spasm (bilateral lower back region). No: CVA Tenderness (L), CVA Tenderness (R), Vertebral Tenderness Extremities: Normal Inspection, Normal Range of Motion, Normal Capillary Refill Neurological: Alert, Oriented, CN II-XII Intact, Normal Reflexes, No Motor/Sensory Deficits Psychiatric: Normal Affect, Normal Mood Skin Exam: Warm, Dry, Intact, Normal Color Course - Vital Signs Text/Narrative:: 2236 The patient was seen by the VESSEL CAPTAIN. She was given Toradol 30mg IM and Valium 10mg po. She also reported some urinary frequency the last 3 days so UA was ordered. 2314 Still having lower back discomfort. Morphine 4mg IVP ordered. UA reviewed. Note trace leuk es, will await micro and cx results prior to treating. 2349 Patient feeling better and able to rest. Will send her home. She has Cyclobenzaprine and APAP at home to use. Will call her tomorrow with any need for abx after reviewing microscopic urine exam. She was given discharge instructions and left the ER in stable condition. Last Recorded V/S: Last Vital Signs Temp 37.0 C 10/04/20 22:22 Pulse 67 10/04/20 22:22 Resp 16 10/04/20 22:22 BP 135/79 10/04/20 22:22 Pulse Ox 99 10/04/20 22:22 - Orders/Labs/Meds Orders: Active Orders 24 hr Category Date Time Status CULTURE URINE [RM] Urgent Lab 10/04/20 23:14 Received UA W MICR POC [POC] Urgent Lab 10/04/20 23:14 Results Labs: Laboratory Tests 10/04/20 Range/Units 23:14 Urine Color Cindy H (YELLOW) POC Urine Appearance Cloudy H (CLEAR) POC Urine pH 5.0 (5.0-8.0) Ur Specific [place] 1.020 (1.005-1.030) POC Urine Protein Trace H (NEGATIVE) POC Ur Glucose (UA) Negative (NEGATIVE) POC Urine Ketones Trace H (NEGATIVE) POC Ur Occult Blood Negative (NEGATIVE) POC Urine Nitrite Negative (NEGATIVE) POC Urine Bilirubin Negative (NEGATIVE) POC Urine Urobilinogen 0.2 (0.2) POC U Leukocyte Esteras Large H (NEGATIVE) Meds: Medications Discontinued Medications Generic Name Dose Route Start Last Admin Trade Name Lucy PRN Reason Stop Dose Admin Diazepam 10 mg 10/04/20 22:33 10/04/20 22:40 Diazepam 5 Mg Tab PO 10/04/20 22:34 10 mg ONETIME ONE Administration Ketorolac Tromethamine 30 mg 10/04/20 22:33 10/04/20 22:40 Ketorolac 30 Mg/Ml Sdv IM 10/04/20 22:34 30 mg ONETIME ONE Administration Morphine Sulfate 4 mg 10/04/20 23:14 10/04/20 23:23 Morphine 4 Mg/Ml Syringe IVPUSH 10/04/20 23:15 4 mg ONETIME ONE Administration Departure - Departure Time of Disposition: 23:52 Disposition: Home, Self-Care 01 Clinical Impression: Back muscle spasm, Urinary frequency - Discharge Information Instructions: Muscle Cramps and Spasms, [id number], Urinary Frequency, Adult Referrals: Winsome Catherine SUPERVISOR [employer]LECT[employer]CTION [Primary Care Provider] - Forms: ED Department Discharge Additional Instructions: -Use the Cyclobenzaprine and Acetaminophen that you have at home. -Rest as needed -Apply ice or heat to the lower back region -We will call you with any need for antibiotics tomorrow after the microscopic exam is done. -Make an appt with your PCP if symptoms are not better -Consider getting an appt with Elias Dash CRNA if your pain continues -Return to the ER as needed Sepsis Event Note (ED) - Evaluation Sepsis Screening Result: No Definite Risk - Focused Exam Vital Signs: Vital Signs Temp Pulse Resp BP Pulse Ox 10/04/20 22:22 37.0 C 67 16 135/79 99 - My Orders Last 24 Hours: My Active Orders 10/04/20 23:14 CULTURE URINE [RM] Urgent UA W MICR POC [POC] Urgent - Assessment/Plan Last 24 Hours: My Active Orders 10/04/20 23:14 CULTURE URINE [RM] Urgent UA W MICR POC [POC] Urgent Assessment:: 1)Back Muscle Spasms 2)Urinary Frequency Plan: As above
[2020-10-04] MEDS ORDERED: Morphine 4 MG/ML Syringe IVPUSH ONE (23:14)
== END 2020-10-05 00:05 | disposition home or self-care (01) ==
LOC: VM.ED 22:16
DX: M62.830 Muscle spasm of back (principal); R35.0 Frequency of micturition; I10 Essential (primary) hypertension; E03.9 Hypothyroidism, unspecified; E66.9 Obesity, unspecified; Z79.899 Other long term (current) drug therapy; Z91.041 Radiographic dye allergy status; Z88.8 Allergy status to other drugs, medicaments and biological substances
CPT/HCPCS: 81000; 87086; 96372; 96374; 99283-25; 99284; A9270-GY; J1885; J2270

== ENCOUNTER 2021-02-26 21:19 | Emergency (ER) | payer MEDICARE, OTHER ==
[2021-02-26] MEDS ORDERED: Lidocaine 1% with EPINEPHrine 1:100,000 20 ML MDV INFILT STA (21:21)
--- NOTE | 2021-02-26 21:22 | EDM.PDOC ---
ED HPI GENERAL MEDICAL PROBLEM - General Stated Complaint: trip head lac left hip pain Time Seen by Provider: 02/26/21 21:19 Source of Information: Reports: Patient History Limitations: Reports: No Limitations - History of Present Illness INITIAL COMMENTS - FREE TEXT/NARRATIVE: Patient comes emergency department today by ambulance from home with concerns of a fall and a scalp laceration and pain to her left hip. Just prior to arrival the patient was at home when she was baking pies for Thanksgiving when she came around the corner and tripped over a box that typically is not there. She fell landing striking the left side of her head. She also fell on her left hip. She summoned the ambulance. She is unsure of when her last tetanus shot was. Upon arrival the patient denies any headache loss of consciousness head neck or back pain. She does complain of burning at the laceration sites on the left parietal region of her scalp. She has no diplopia or visual acuity changes. No paresthesias of her upper or lower extremities. No chest pain no shortness of breath weakness dizziness lightheadedness prior to her fall this was clearly a mechanical fall. She has no abdominal pain nausea or vomiting. She does complain of some pain to her left hip without any paresthesias to her left hip. She is able to stand and bear weight on it. She denies any back pain or pelvic pain. Left Head Pain Score (Numeric/FACES): 10 - Related Data Allergies Allergy/AdvReac Type Severity Reaction Status Date / Time meclizine Allergy Anxiety Verified 10/31/20 08:49 oxaprozin [From Daypro] Allergy Hives Verified 10/31/20 08:36 diagnostic xray materials Allergy Hives Uncoded 10/31/20 08:36 Home Meds: Home Meds Citalopram Hydrobromide [Celexa] 40 mg PO DAILY 02/25/17 [History] Levothyroxine 1 tab PO DAILY 08/19/17 [History] Ibuprofen 600 mg PO Q6H PRN 07/11/20 [History] Past Medical History Other HEENT History: bacterial infection OU treated antibiotics Cardiovascular History: Reports: Hypertension, SOB on Exertion Respiratory History: Reports: SOB Other Respiratory History: hay fever, seasonal 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 Neurological History: Reports: Neuropathy, Peripheral Psychiatric History: Reports: Anxiety, Depression Endocrine/Metabolic History: Reports: Hyperthyroidism, Obesity/BMI 30+ Hematologic History: Reports: None Immunologic History: Reports: None Oncologic (Cancer) History: Reports: None Other Dermatologic History: dermatitis/vaginal itch. - Infectious Disease History Infectious Disease History: Reports: None - Past Surgical History GI Surgical History: Reports: Bariatric Procedure, Other (See Below) Other GI Surgeries/Procedures: gastric bypass Neurological Surgical History: Reports: None Musculoskeletal Surgical History: Reports: Knee Replacement Other Musculoskeletal Surgeries/Procedures:: Bilateral knee Social & Family History - Family History Cardiac: Reports: Aneurysm, [place] Respiratory: Reports: Asthma Neurological: Reports: Dementia, Seizure Oncologic: Reports: Prostate - Caffeine Use Caffeine Use: Reports: None - Living Situation & Occupation Living situation: Reports: , with Family (grandson) Occupation: Retired ED ROS GENERAL - Review of Systems Review Of Systems: Comprehensive ROS is negative, except as noted in HPI. ED EXAM, HEAD INJURY - Physical Exam Exam: See Below Exam Limited By: No Limitations General Appearance: Alert, WD/WN, No Apparent Distress Head: Normocephalic, Scalp Lacerations (On the superior left parietal region there is a vertical laceration into the subcutaneous tissue approximately 3-1/2 inches in length. There is no subcutaneous emphysema or crepitus. There is a small amount of hematoma. The rest of the head is atraumatic.). No: Active Bleeding, Rolon's Sign, Facial Abrasions, Facial Ecchymosis, Facial Lacerations, Facial Swelling, Sinus Tenderness, Facial Tenderness, Raccoon Eyes Nexus Criteria: No: Posterior, Midline Cervical Tenderness, Evidence of Intoxication, Altered Level of Consciousness, Focal Neurological Deficit, Painful Distraction Injuries Eyes: Bilateral Eye: EOMI, PERRL Ears: Normal External Exam, Normal Canal, Normal TMs Nose: Normal Inspection, Normal Mucousa, No Blood Throat/Mouth: Normal Inspection, Normal Lips, Normal Teeth, Normal Gums, Normal Oropharynx, Normal Voice, No Airway Compromise Neck: Non-Tender, Full Range of Motion, Normal Alignment, Normal Inspection Respiratory: No Respiratory Distress, Lungs Clear, Normal Breath Sounds, No Accessory Muscle Use, Chest Non-Tender Cardiovascular: Normal Peripheral Pulses, JVD GI/Abdominal Exam: Normal Bowel Sounds, Soft, Non-Tender, No Organomegaly (Female) Exam: Deferred Rectal (Female) Exam: Deferred Back Exam: Normal Inspection, Full Range of Motion. No: Paraspinal Tenderness, Vertebral Tenderness Extremities: Normal Capillary Refill. No: Normal Inspection (She has some tenderness on the left lateral greater trochanter. With no overt bony deformity shortening or rotation rest of her lower extremities are atraumatic) Neurologic: gear room keeper II-XII nml As Tested, No Motor/Sensory Deficits, Alert, Normal Mood/Affect, Oriented x 3 Skin: Normal Color, Warm/Dry - Julieth Coma Score Best Eye Response ([place]): (4) Open Spontaneously Best Verbal Response ([place]): (5) Oriented Best Motor Response ([place]): (6) Obeys Commands ED LACERATION/WOUND & INA PROC - Laceration/Wound Repair Left Lateral Other Lac/wound length in cm: 7 Appearance: Subcutaneous, Linear, Clean Distal NVT: Neuro & Vascular Intact Anesthetic Type: Local Local Anesthesia - Lidocaine (Xylocaine): 1% with EPI Skin Prep: Chlorhexidine (Hibiciens), Saline Saline irrigation (cc's): 100 Closed with: Sutures Suture Size: 4-0 Suture Type: Running Sterile Dressing Applied: Nurse Tetanus Status Addressed: Yes Course - Vital Signs Last Recorded V/S: Last Vital Signs Temp 98.9 F 02/26/21 21:25 Pulse 75 02/26/21 21:25 Resp 12 02/26/21 21:25 BP 187/105 H 02/26/21 21:25 Pulse Ox 97 02/26/21 21:25 - Orders/Labs/Meds Meds: Medications Discontinued Medications Generic Name Dose Route Start Last Admin Trade Name Lucy PRN Reason Stop Dose Admin Lidocaine/Epinephrine 20 ml 02/26/21 21:21 Lidocaine 1% With Epinephrine 1:100,000 20 Ml Mdv INFILT 02/26/21 21:22 ONETIME STA - Radiology Interpretation Free Text/Narrative:: CT of the head per radiology shows no acute intracranial findings. X-ray of the left hip with pelvis with some chronic osteoarthritis nothing acute. - Re-Assessments/Exams Free Text/Narrative Re-Assessment/Exam: Her tetanus immunization was verified as up-to-date. CT of the head and x-ray of the hip and pelvis were negative. Patient does not want aicha in her scalp she would prefer sutures. Sure instructions as below are explained to the patient she was comfortable with this plan and her questions were answered. She was able to ambulate without difficulty. The neurological evaluation is unchanged after arrival. Departure - Departure Time of Disposition: 23:07 Disposition: Home, Self-Care 01 Clinical Impression: Laceration of scalp Qualifiers: Encounter type: initial encounter Qualified Code(s): S01.01XA - Laceration without foreign body of scalp, initial encounter Fall Qualifiers: Encounter type: initial encounter Qualified Code(s): W19.XXXA - Unspecified fall, initial encounter Hip pain, acute Qualifiers: Laterality: left Qualified Code(s): M25.552 - Pain in left hip Contusion of scalp Qualifiers: Encounter type: initial encounter Qualified Code(s): S00.03XA - Contusion of scalp, initial encounter - Discharge Information Instructions: Facial or Scalp Contusion, [id number], Laceration Care, Adult, [id number] Referrals: Winsome Catherine BUSINESS OPERATIONS COORDINATOR [Primary Care Provider] - Forms: ED Department Discharge Additional Instructions: Cleanse the wound twice daily with soap and water. Bacitracin until healed. Sutures out in 7 days. Watch for signs of infection. Ice to the sore areas of the scalp and left hip. Return to the ED if new or worsening symptoms. Follow up with PCP as needed for suture removal. Running water over the laceration is fine no soaking in water.
[2021-02-27 01:23] VITALS: BP 187/105; PULSE 75
--- NOTE | 2021-02-27 07:55 | CT ---
[id number] CT/CT Head WO IV EXAM: CT Head WO IV CLINICAL DATA: FALL, HEAD INJURY COMPARISON STUDY: June 09, 2018. FINDINGS: No intracranial hemorrhage, extra-axial fluid collection, mass, or acute ischemia. Generalized parenchymal atrophy with scattered areas of nonspecific white matter disease, commonly seen as sequela of chronic microvascular ischemia. Soft tissues are unremarkable. Paranasal sinuses and mastoid air cells are clear. IMPRESSION: No acute intracranial findings. Doc Valentine DO 02/27/21 0753 Thank you for allowing us to participate in the care of your patient.
--- NOTE | 2021-02-27 08:46 | CR ---
[id number] RAD/RAD Pelvis 1V W 2V Left Hip Exam: RAD Pelvis 1V W 2V Left Hip Indication:FALL, LEFT HIP PAIN Comparison: No prior imaging for comparison. Discussion/Impression: Left femoroacetabular osteoarthritis. Joint space remains well-preserved. No acute fracture or dislocation. No AVN or erosive changes. Scattered enthesopathy throughout the pelvis, including along the iliac crest and greater trochanter of the proximal femur. Hayden Núñez MD 02/27/21 0844 Thank you for allowing us to participate in the care of your patient.
== END 2021-02-26 23:30 | disposition home or self-care (01) ==
LOC: VM.ED 21:19
DX: S01.01XA Laceration without foreign body of scalp, initial encounter (principal); M25.552 Pain in left hip; I10 Essential (primary) hypertension; E21.3 Hyperparathyroidism, unspecified; E66.9 Obesity, unspecified; Z68.31 Body mass index [BMI] 31.0-31.9, adult; Z88.8 Allergy status to other drugs, medicaments and biological substances; Z91.048 Other nonmedicinal substance allergy status; Z79.899 Other long term (current) drug therapy; W01.198A Fall on same level from slipping, tripping and stumbling with subsequent striking against other object, initial encounter; Y92.009 Unspecified place in unspecified non-institutional (private) residence as the place of occurrence of the external cause
CPT/HCPCS: 12002; 70450; 99284-25

== ENCOUNTER 2023-02-21 18:22 | Emergency (ER) | payer MEDICARE, OTHER ==
[2023-02-21 19:09] LABS: BASOPHILS PERCENT AUTO 0.6 % (0.2-1.2); EOSINOPHILS ABSOLUTE AUTO 0.1 x10^3/uL (0.0-0.5); HEMATOCRIT 38.9 % (33.0-47.0); HEMOGLOBIN 12.6 g/dL (12.0-16.0); LYMPHOCYTES ABSOLUTE AUTO 1.3 x10^3/uL (1.0-4.8); MEAN CORPUSCULAR HEMOGLOBIN 27.5 pg (26.0-32.0); MEAN CORPUSCULAR HGB CONC 32.4 g/dL (32.0-36.0); MEAN CORPUSCULAR VOLUME 84.7 fL (78.0-93.0); MONOCYTES ABSOLUTE AUTO 0.6 x10^3/uL (0.0-0.8); MONOCYTES PERCENT AUTO 9.2 % (2.0-11.0); NEUTROPHILS ABSOLUTE AUTO 4.9 x10^3/uL (1.8-7.7); NEUTROPHILS PERCENT AUTO 70.2 % (50.0-80.0); PLATELET COUNT,PLT 178 x10^3/uL (130-400); RED BLOOD CELL COUNT 4.59 x10^6/uL (4.00-5.50); WHITE BLOOD CELL COUNT,WBC 6.9 x10^3/uL (4.0-10.0)
[2023-02-21 19:35] LABS: A/G RATIO 1.06; ALBUMIN 3.7 g/dL (3.4-5.0); C-REACTIVE PROTEIN 6.39 mg/dL (<=0.50); EST CRCL DRUG DOSING (CG) 46.2 mL/min; POTASSIUM,K 4.5 mmol/L (3.5-5.1); PROTEIN TOTAL,TP 7.2 g/dL (6.4-8.2)
[2023-02-21 19:36] LABS: ANION GAP 12.5 mmol/L (5-15)
[2023-02-21 19:48] LABS: BILIRUBIN TOTAL 0.8 mg/dL (0.2-1.0)
[2023-02-21] MEDS ORDERED: predniSONE 20 MG Tab PO ONE (19:51)
[2023-02-22 00:04] VITALS: BP 171/80; PULSE 62
== END 2023-02-21 20:22 | disposition home or self-care (01) ==
LOC: VM.ED 18:22
DX: L90.5 Scar conditions and fibrosis of skin (principal); E66.9 Obesity, unspecified; I10 Essential (primary) hypertension; Z79.899 Other long term (current) drug therapy; Z88.8 Allergy status to other drugs, medicaments and biological substances; Z68.29 Body mass index [BMI] 29.0-29.9, adult
CPT/HCPCS: 36415; 80053; 83605; 84145; 85025; 86140; 87040; 99283; 99284; J7512

== ENCOUNTER 2023-04-12 15:43 | Emergency (ER) | payer OTHER, MEDICARE ==
[2023-04-12 17:02] VITALS: PULSE 67
[2023-04-12 18:27] VITALS: BP 148/76
== END 2023-04-12 18:00 | disposition home or self-care (01) ==
LOC: VM.ED 15:43
DX: S02.2XXA Fracture of nasal bones, initial encounter for closed fracture (principal); I10 Essential (primary) hypertension; E66.9 Obesity, unspecified; Z79.899 Other long term (current) drug therapy; Z88.8 Allergy status to other drugs, medicaments and biological substances; Z91.048 Other nonmedicinal substance allergy status; Z68.31 Body mass index [BMI] 31.0-31.9, adult; W01.198A Fall on same level from slipping, tripping and stumbling with subsequent striking against other object, initial encounter
CPT/HCPCS: 12011; 70450; 70486; 99283; 99284

== ENCOUNTER 2023-09-20 06:25 | Emergency (ER) | payer MEDICARE, OTHER ==
[2023-09-20 06:45] VITALS: BP 150/72; PULSE 60
[2023-09-20] MEDS ORDERED: Sodium Chloride 0.9% 10 ML Syringe FLUSH PRN (06:52)
[2023-09-20] MEDS: HYDROmorphone 0.5 MG/0.5 ML Syringe IVPUSH ONE ×2 (06:58→09:28)
== END 2023-09-20 11:05 | disposition home or self-care (01) ==
LOC: VM.ED 06:25
DX: S42.295A Other nondisplaced fracture of upper end of left humerus, initial encounter for closed fracture (principal); I10 Essential (primary) hypertension; E66.9 Obesity, unspecified; Z79.899 Other long term (current) drug therapy; Z88.8 Allergy status to other drugs, medicaments and biological substances; Z91.048 Other nonmedicinal substance allergy status; W06.XXXA Fall from bed, initial encounter; Z68.30 Body mass index [BMI] 30.0-30.9, adult
CPT/HCPCS: 73030-LT; 96374; 96376; 99283; 99284-25; J1170

== ENCOUNTER 2025-03-03 18:33 | Emergency (ER) | payer MEDICARE, OTHER ==
[2025-03-03 18:53] VITALS: BP 136/78; PULSE 89
== END 2025-03-03 19:40 | disposition home or self-care (01) ==
LOC: VM.ED 18:33
DX: S92.314A Nondisplaced fracture of first metatarsal bone, right foot, initial encounter for closed fracture (principal); I10 Essential (primary) hypertension; Z88.8 Allergy status to other drugs, medicaments and biological substances; Z79.899 Other long term (current) drug therapy; W20.8XXA Other cause of strike by thrown, projected or falling object, initial encounter; Y93.89 Activity, other specified
CPT/HCPCS: 73630-RT; 99283